=== PATIENT | male | born 1985 | race Two or more races ===

== ENCOUNTER 2021-06-19 00:21 | Emergency (ER) | payer OTHER ==
[2021-06-19 00:36] VITALS: BP 145/98; PULSE 95
--- NOTE | 2021-06-19 00:56 | EDM.PDOC ---
ED HPI GENERAL MEDICAL PROBLEM - General Chief Complaint: General Stated Complaint: eye pain Time Seen by Provider: 06/19/21 00:31 Source of Information: Reports: Patient History Limitations: Reports: No Limitations - History of Present Illness INITIAL COMMENTS - FREE TEXT/NARRATIVE: Yoel is a 36 yo male who presents to the ED with complaints of left eye discomfort. States he was at work around 2:00pm and accidentally turned and walked into an plastic bag. States the edge of the bag hit him in the eye. States he finished working and had some mild discomfort. Went home and layed down for a nap. When he work up about an 1 1/2 ago it was hurting more and noticed swelling to his eyelid. No vision loss. Left Eye Pain Score (Numeric/FACES): 6 - Related Data Allergies Allergy/AdvReac Type Severity Reaction Status Date / Time No Known Allergies Allergy Verified 06/19/21 00:22 Home Meds: Home Meds . [No Known Home Meds] 01/17/14 [History] Past Medical History Gastrointestinal History: Reports: Hiatal Hernia Musculoskeletal History: Reports: Back Pain, Chronic - Past Surgical History GI Surgical History: Reports: Appendectomy Social & Family History - Family History Family Medical History: No Pertinent Family History - Tobacco Use Tobacco Use Status *Q: Current Every Day Tobacco User Years of Tobacco use: 20 Packs/Tins Daily: 0.5 ED ROS GENERAL - Review of Systems Review Of Systems: Comprehensive ROS is negative, except as noted in HPI. ED EXAM, GENERAL - Physical Exam Exam: See Below Exam Limited By: No Limitations General Appearance: Alert, No Apparent Distress Eye Exam: Left Eye: Conjunctival Injection, Corneal Abrasion, Bilateral Eye: EOMI, PERRL, Other (swelling to upper eye lid. No vision change 20/25 both eyes) Course - Vital Signs Last Recorded V/S: Last Vital Signs Temp 97.2 F 06/19/21 00:22 Pulse 95 06/19/21 00:22 Resp 16 06/19/21 00:22 BP 145/98 H 06/19/21 00:22 Pulse Ox 97 06/19/21 00:22 - Orders/Labs/Meds Orders: Active Orders 24 hr Category Date Time Status Visual Acuity [Vision Test] [RC] ASDIRECTED Care 06/19/21 00:42 Active Departure - Departure Time of Disposition: 00:56 Disposition: Home, Self-Care 01 Clinical Impression: Corneal abrasion, left Qualifiers: Encounter type: initial encounter Qualified Code(s): S05.02XA - Injury of conjunctiva and corneal abrasion without foreign body, left eye, initial encounter - Discharge Information Instructions: Corneal Abrasion, [id number] Referrals: PCP,None [Primary Care Provider] - Additional Instructions: 1) Gentamicin eye drops - 2 drops every 4 hours while awake 2) May take Tylenol and alternate with ibuprofen every 3-4 hours as needed for discomfort 3) Follow up if any concerns or changes in vision. 4) Recommend following up with primary provider for recheck blood pressure. Sepsis Event Note (ED) - Evaluation Sepsis Screening Result: No Definite Risk - Focused Exam Vital Signs: Vital Signs Temp Pulse Resp BP Pulse Ox 06/19/21 00:22 97.2 F 95 16 145/98 H 97 - Problem List & Annotations (1) Corneal abrasion, left SNOMED Code(s): 80122170923516670 Code(s): S05.02XA - INJ CONJUNCTIVA AND CORNEAL ABRASION W/O FB, LEFT EYE, INIT Status: Acute Current Visit: Yes Qualifiers: Encounter type: initial encounter Qualified Code(s): S05.02XA - Injury of conjunctiva and corneal abrasion without foreign body, left eye, initial encounter - My Orders Last 24 Hours: My Active Orders 06/19/21 00:42 Visual Acuity [Vision Test] [RC] ASDIRECTED - Assessment/Plan Last 24 Hours: My Active Orders 06/19/21 00:42 Visual Acuity [Vision Test] [RC] ASDIRECTED Plan: Upon arrival, elected to proceed with tetracaine eye drops and fluoroscein staining of the left eye. Small corneal abrasion noted. Patient had no further discomfort. Proceeded with gentamicin eye drops X 2, which we will send home with patient. See additional instructions.
[2021-06-19] MEDS ORDERED: Tetracaine HCl/PF 0.5% 4 ML Bottle EYELF ONE (01:08)
[2021-06-19] MEDS ORDERED: Fluorescein 1 MG Ophth Strip EYELF ONE (01:09)
[2021-06-19] MEDS ORDERED: Tetracaine HCl/PF 0.5% 4 ML Bottle ONE (01:10)
[2021-06-19] MEDS ORDERED: Gentamicin 0.3% Ophth Soln 5 ML Bottle ONE (01:10)
[2021-06-19] MEDS ORDERED: Fluorescein 1 MG Ophth Strip ONE (01:10)
[2021-06-19] MEDS ORDERED: Gentamicin 0.3% Ophth Soln 5 ML Bottle EYELF SCH ×2 (01:15→08:00)
== END 2021-06-19 01:10 | disposition home or self-care (01) ==
LOC: CC.ED 00:21
DX: S05.02XA Injury of conjunctiva and corneal abrasion without foreign body, left eye, initial encounter (principal); Z72.0 Tobacco use; W22.09XA Striking against other stationary object, initial encounter
CPT/HCPCS: 99283; A9270-GY

== ENCOUNTER 2024-12-20 19:19 | Emergency (ER) | payer OTHER ==
[2024-12-20 19:22] VITALS: BP 155/111; PULSE 111
[2024-12-20] MEDS: Lidocaine 1% with EPINEPHrine 1:100,000 10 ML MDV INJECT ONE (19:26)
[2024-12-20] MEDS: Bacitracin Oint 1 GM U/D Packet TOP ONE (19:26)
== END 2024-12-20 19:42 | disposition home or self-care (01) ==
LOC: CC.ED 19:19
DX: S61.512A Laceration without foreign body of left wrist, initial encounter (principal); W26.0XXA Contact with knife, initial encounter; Y93.89 Activity, other specified
CPT/HCPCS: 12001; 99282

== ENCOUNTER 2024-12-24 15:54 | Emergency (ER) | payer OTHER ==
[2024-12-24 16:30] VITALS: PULSE 87
[2024-12-24 16:36] VITALS: BP 131/84
== END 2024-12-24 17:47 | disposition home or self-care (01) ==
LOC: CC.ED 15:54
DX: S50.12XA Contusion of left forearm, initial encounter (principal); F17.200 Nicotine dependence, unspecified, uncomplicated; Z90.49 Acquired absence of other specified parts of digestive tract; W26.0XXA Contact with knife, initial encounter; Y99.0 Civilian activity done for income or pay
CPT/HCPCS: 99283